=== PATIENT | female | born 1940 | race Caucasian/White ===

== ENCOUNTER 2018-02-08 09:45 | Outpatient (RCR) | payer MEDICARE, OTHER, SELFPAY ==
--- NOTE | 2018-02-01 10:55 | PT.OTN ---
Addendum entered and electronically signed by Garima Hidalgo, PT 02/01/18 11:12: Transition note: On January 30, 2018 our therapy services consisting of Speech, Occupational, and Physical Therapy transitioned from the [employer] electronic documentation system to a new [employer] electronic documentation system.?? All documentation prior to January 30 can be found under [employer] saved data. From January 30 forward all medical record documentation will be in [employer]memory [employer] syndications. Original Note: Current Diagnoses Unilateral primary osteoarthritis, right knee (02/01/18) Stiffness of right knee, not elsewhere classified (02/01/18) Muscle weakness (generalized) (02/01/18) Iliotibial band syndrome, right leg (02/01/18) Physical Therapy Treatment Note PT-OP-A Visit Information Start: 02/01/18 10:27 Freq: Status: Active Protocol: Activity Type Activity Date Activity User E-Sign Co-Sign Detail Recorded Client Recorded Date Recorded By Document 02/01/18 10:43 [place]ILY [place] [id number] 02/01/18 10:46 [facility] 02/01/18 10:43 Out-Patient Physical Therapy Visit Information [Visit Information] -Visit Type Treatment Note -Visit Start Time 09:45 -Visit Stop Time 10:35 -Total Visit Minutes 50 -Visit Number 2. G codes and prog. report @ 10. [Evaluation Information] -Evaluation Date 01/25/18 PT-OP-C Subjective Start: 02/01/18 10:27 Freq: Status: Active Protocol: Activity Type Activity Date Activity User E-Sign Co-Sign Detail Recorded Client Recorded Date Recorded By Document 02/01/18 10:43 [place] [id number] 02/01/18 10:46 [facility] 02/01/18 10:43 OP-PT Subjective [Patient Comments] -Patient Comments Pt reports compliance with HEP. She admits some increased soreness in the R knee after exercises. -Patient Reported Progress Same PT-OP-Q Treatments Start: 02/01/18 10:27 Freq: Status: Active Protocol: Activity Type Activity Date Activity User E-Sign Co-Sign Detail Recorded Client Recorded Date Recorded By Document 02/01/18 10:46 [email or web address] 02/01/18 10:50 [facility] 02/01/18 10:46 Cardio Equipment [Recumbent Stepper (Sci-Fit)] -Duration (Minutes) 6 -Resistance 1 -Other [employer] Equipment [Shuttle Balance] 1 -Details Yellow- DL normal and semi -tandem -Reps/Duration 10 min Therapeutic Exercises [Supine Exercises] 4 -Supine Exercise Name heel slides -Side right -Reps/Minutes 20 reps 2 -Supine Exercise Name hip adduction -Side bilateral -Equipment Used therapy ball -Reps/Minutes 15 reps -Comments hold 5 sec 1 -Supine Exercise Name quad sets -Side right -Reps/Minutes 15 reps -Comments towel under knee [Sidelying Exercises] 3 -Sidelying Exercise Name clamshells -Side right -Reps/Minutes 10 reps -Comments tactile cuing [Sitting Exercises] 1 -Sitting Exercise Name LAQ ( alternating) -Side bilateral -Reps/Minutes 15 each [Standing Exercises] 1 -Standing Exercise Name Semi-tandem weight shift with elevation of opposite UE on wall -Side bilateral -Reps/Minutes 10 each PT-OP-R Modalities Start: 02/01/18 10:27 Freq: Status: Active Protocol: Activity Type Activity Date Activity User E-Sign Co-Sign Detail Recorded Client Recorded Date Recorded By Document 02/01/18 10:51 [facility] [email or web address] 02/01/18 10:53 [facility] 02/01/18 10:51 Hot Pack/Cold Pack [Treatment] Cold Pack -Location R knee (ant/ post) -Patient Position Hooklying -Treatment Duration (minutes) 10 -Patient Tolerance Good -Comments bolster PT-OP-T Assessment and Plan Start: 02/01/18 10:27 Freq: Status: Active Protocol: Activity Type Activity Date Activity User E-Sign Co-Sign Detail Recorded Client Recorded Date Recorded By Document 02/01/18 10:51 [facility] [email or web address] 02/01/18 10:53 [facility] 02/01/18 10:51 Physical Therapy Assessment [Impairments] -Impairments Balance Pain Posture ROM Strength [Assessment Summary] -Assessment Pt with improved quadriceps activation with weight shifting with opposite UE elevation on wall and improved posture into extension with this activity. Pt with increased difficulty with R foot posterior on Shuttle Balance . Pt requires slow pacing of activities. Physical Therapy Plan [Frequency and Duration] -Frequency of Treatment 2x/Week -Duration of Treatment 10 wks -Plan of Care Start Date 01/25/18 -Plan of Care End Date 04/04/18 [Next Visit Focus/Plan] -Next Visit Plan Shuttle Recovery (leg press), semi- tandem standing on firm (add to HEP if tolerable).
--- NOTE | 2018-02-06 12:05 | PT.OTN ---
Current Diagnoses Unilateral primary osteoarthritis, right knee (02/06/18) Stiffness of right knee, not elsewhere classified (02/06/18) Muscle weakness (generalized) (02/06/18) Iliotibial band syndrome, right leg (02/06/18) Physical Therapy Treatment Note PT-OP-A Visit Information Start: 02/01/18 10:27 Freq: Status: Active Protocol: Activity Type Activity Date Activity User E-Sign Co-Sign Detail Recorded Client Recorded Date Recorded By Document 02/06/18 10:15 [facility] [email or web address] 02/06/18 12:05 D 02/06/18 10:15 Out-Patient Physical Therapy Visit Information [Visit Information] -Visit Type Treatment Note -Visit Start Time 09:45 -Visit Stop Time 10:35 -Total Visit Minutes 20 -Visit Number 3 gcodes at 10 -Number of HEALTH ECONOMIST Visits 1 [Evaluation Information] -Evaluation Date 01/25/18 PT-OP-C Subjective Start: 02/01/18 10:27 Freq: Status: Active Protocol: Activity Type Activity Date Activity User E-Sign Co-Sign Detail Recorded Client Recorded Date Recorded By Document 02/06/18 10:15 [facility] [email or web address] 02/06/18 12:05 [facility] 02/06/18 10:15 OP-PT Subjective [Patient Comments] -Patient Comments Pt states she had increase in knee pain and pain in to calf after last visit that continues to today. PT-OP-Q Treatments Start: 02/01/18 10:27 Freq: Status: Active Protocol: Activity Type Activity Date Activity User E-Sign Co-Sign Detail Recorded Client Recorded Date Recorded By Document 02/06/18 10:15 [facility] [email or web address] 02/06/18 12:05 [facility] 02/06/18 10:15 Cardio Equipment [Recumbent Stepper (Sci-Fit)] -Duration (Minutes) 6 -Resistance 1 -Other [employer] Equipment [Shuttle Recovery] Bilateral Squats -Resistance 37# -Shuttle Recovery Platform Stable -Reps/Time 20 Therapeutic Exercises [Supine Exercises] 4 -Supine Exercise Name heel slides -Side right -Reps/Minutes 10 reps 2 -Supine Exercise Name hip adduction -Side bilateral -Equipment Used therapy ball -Reps/Minutes 15 reps -Comments hold 5 sec 1 -Supine Exercise Name quad sets -Side right -Reps/Minutes 15 reps -Comments towel under knee [Sidelying Exercises] 3 -Sidelying Exercise Name clamshells -Side right -Reps/Minutes 10 reps -Comments tactile cuing [Sitting Exercises] 1 -Sitting Exercise Name LAQ ( alternating) -Side bilateral -Reps/Minutes 15 each [Standing Exercises] 2 -Standing Exercise Name calf stretch -Reps/Minutes 1 -Comments jean PT-OP-R Modalities Start: 02/01/18 10:27 Freq: Status: Active Protocol: Activity Type Activity Date Activity User E-Sign Co-Sign Detail Recorded Client Recorded Date Recorded By Document 02/06/18 10:15 [facility] [email or web address] 02/06/18 12:05 GGD 02/06/18 10:15 Hot Pack/Cold Pack [Treatment] Cold Pack -Location R knee (ant/ post) -Patient Position Hooklying -Treatment Duration (minutes) 10 -Patient Tolerance Good -Comments bolster PT-OP-T Assessment and Plan Start: 02/01/18 10:27 Freq: Status: Active Protocol: Activity Type Activity Date Activity User E-Sign Co-Sign Detail Recorded Client Recorded Date Recorded By Document 02/06/18 10:15 [facility] [email or web address] 02/06/18 12:05 GGD 02/06/18 10:15 Physical Therapy Assessment [Assessment Summary] -Assessment Pt had increase pain with hip add in hooklying, tolerated slightly better with knees extended on towel roll. She increase C/O towards end of exercise. Physical Therapy Plan [Frequency and Duration] -Frequency of Treatment 2x/Week -Duration of Treatment 10 wks -Plan of Care Start Date 01/25/18 -Plan of Care End Date 04/04/18 [Next Visit Focus/Plan] -Next Visit Plan progress under current plan of care. Assess tolerance to strengthening vs balance exercise.
--- NOTE | 2018-02-08 10:53 | PT.OTN ---
Current Diagnoses Unilateral primary osteoarthritis, right knee (02/08/18) Stiffness of right knee, not elsewhere classified (02/08/18) Muscle weakness (generalized) (02/08/18) Iliotibial band syndrome, right leg (02/08/18) Physical Therapy Treatment Note PT-OP-A Visit Information Start: 02/01/18 10:27 Freq: Status: Active Protocol: Document 02/08/18 10:25 [facility] (Rec: 02/08/18 10:51 [facility] [email or web address]) Out-Patient Physical Therapy Visit Information Visit Information Visit Type Treatment Note Visit Start Time 09:45 Visit Stop Time 10:25 Visit Number 4 gcodes at 10 Number of EBD SPECIAL EDUCATION TEACHER Visits 0 PT-OP-C Subjective Start: 02/01/18 10:27 Freq: Status: Active Protocol: Document 02/08/18 10:25 [facility] (Rec: 02/08/18 10:51 [facility] [email or web address]) OP-PT Subjective Patient Comments Patient Comments Pt continues to have R lateral knee pain after sessions. Dr. Martinez suggested an ankle brace which she was fitted for and will obtain from his office. Patient Reported Progress Worse PT-OP-Q Treatments Start: 02/01/18 10:27 Freq: Status: Active Protocol: Document 02/08/18 10:25 [facility] (Rec: 02/08/18 10:51 [facility] [email or web address]) Therapeutic Exercises Supine Exercises 4 Supine Exercise Name heel slides Side right Reps/Minutes 10 reps Sidelying Exercises 2 Sidelying Exercise Name hip adduction Side bilateral Reps/Minutes 10 reps Comments L sidelying; increased pain ( discontinued exercise) 1 Sidelying Exercise Name Reverse clamshells Side right Reps/Minutes 10 reps Comments tactile cuing 3 Sidelying Exercise Name clamshells Side right Reps/Minutes 10 reps Comments tactile cuing Manual Therapy Treatment Joint Mobilizations 2 Joint proximal tibiofibular Direction posterior Grade II Reps/Duration 6 min. Comments Gentle. 1 Joint patellofemoral Direction medial Grade III Reps/Duration 5 min. Manual Techniques 1 Type Calf and gastroc stretch Body Location Right LE Reps/Duration 4 min. Self-Care/Home Management Treatment Education Patient Education Home Exercise Program Other Education clamshells, reverse clamshells , heel slides 1x/day PT-OP-R Modalities Start: 02/01/18 10:27 Freq: Status: Active Protocol: Document 02/08/18 10:25 [facility] (Rec: 02/08/18 10:51 [facility] [email or web address]) Hot Pack/Cold Pack Treatment Cold Pack Location R knee (ant/post) Patient Position Hooklying Treatment Duration (minutes) 10 Patient Tolerance Good Comments earlenester PT-OP-T Assessment and Plan Start: 02/01/18 10:27 Freq: Status: Active Protocol: Document 02/08/18 10:25 [facility] (Rec: 02/08/18 10:51 [facility] [email or web address]) Physical Therapy Assessment Assessment Summary Assessment Pt still with c/o increased L lateral pain following treatments. She denies pain with clamshell and reverse clamshells activities. Stiffness of the fibula noted proximally of the R knee. Pt would benefit from aquatic therapy to decrease force on the RLE and increased exercise activity for improved gait and strength. Physical Therapy Plan Frequency and Duration Frequency of Treatment 2x/Week Duration of Treatment 10 wks Plan of Care Start Date 01/25/18 Plan of Care End Date 04/04/18 Next Visit Focus/Plan Next Visit Plan assess [place] to new HEP, standing balance activities to be initiated and if tolerated add to HEP.
--- NOTE | 2018-04-13 10:22 | PT.OPDS ---
Current Diagnoses Unilateral primary osteoarthritis, right knee (02/08/18) Stiffness of right knee, not elsewhere classified (02/08/18) Muscle weakness (generalized) (02/08/18) Iliotibial band syndrome, right leg (02/08/18) Provider Visit Care Team Role Provider Type Yuriy Dasilva MD Family Provider Physician Primary Care Provider Specialty: Family Practice Address: [address] [place], [place] [address], [address] Email: [email or web address] Lalit Martinez MD Attending Provider Physician Specialty: Orthopedic Surgery Address: [address] [place] [address], [id number] Email: [email or web address] Visit Number Visit Number 4 Discharge Summary PT-OP-C Subjective Start: 02/01/18 10:27 Freq: Status: Active Protocol: Document 04/13/18 10:14 [facility] (Rec: 04/13/18 10:18 [facility] [email or web address]) OP-PT Subjective Patient Comments Patient Comments Pt states that she sold her home, moving to [place]. She will not be able to attend further physical therapy. She is wearing a knee brace and recently got an injection in her R knee. PT-OP-T Assessment and Plan Start: 02/01/18 10:27 Freq: Status: Active Protocol: Document 04/13/18 10:14 [facility] (Rec: 04/13/18 10:18 [facility] [email or web address]) Physical Therapy Assessment Assessment Summary Assessment Pt attended 4 total physical therapy sessions, with increased pain when attempting most exercises. Pt was unable to get into the aquatic physical therapy program, and at this time is moving out of state and cannot return to physical therapy at this clinic. Pt would greatly benefit from pre-surgical physical therapy, including aquatic therapy to assist with improving strength and mobility prior to surgical intervention. No objective measures were able to be taken , as the pt did not schedule a follow up visit due to moving out of town. Pt notes that she is doing ROM exercises prescribed to her, and bracing her R knee. Physical Therapy Plan Discharge Physical Therapy Discharge Reasons Patient Request Discharge Comments moving out of state.
== END 2018-08-31 13:15 ==
LOC: PHYS 09:45
PROVIDERS: Family Provider Family Medicine; PCP Family Medicine; Visit Provider Orthopaedic Surgery
DX: M17.11 Unilateral primary osteoarthritis, right knee (principal); M76.31 Iliotibial band syndrome, right leg; M62.81 Muscle weakness (generalized); M25.661 Stiffness of right knee, not elsewhere classified
CPT/HCPCS: 97010; 97110; 97112; 97140